=== PATIENT | female | born 1935 | race Caucasian/White ===

== ENCOUNTER 2023-07-17 14:00 | Emergency (ER) | payer OTHER ==
[~2023-07-17] VITALS: Ht 147.3 cm; Wt 49.9 kg
[2023-07-17 14:10] VITALS: BP 167/94; PULSE 80; RESP 16; TEMP 97; O2SAT 97
[2023-07-17] MEDS ORDERED: ACETAMINOPHEN 325 MG TAB PO PRN (14:55)
[2023-07-17] MEDS ORDERED: HYDROcodone/APAP 5/325 MG 1 TAB TAB PO PRN (14:55)
[2023-07-17] MEDS ORDERED: ONDANSETRON 4 MG/2 ML VIAL IVP PRN (14:55)
[2023-07-17] MEDS ORDERED: POTASSIUM CHLORIDE 10 MEQ TABER PO PRN (14:55)
[2023-07-17] MEDS ORDERED: KCL 20 MEQ IN 100 mL PREMIX 200 ML IV PRN (14:55)
[2023-07-17] MEDS ORDERED: MAG SULF 2000 MG/WATER PREMIX 50 ML IV PRN (14:55)
[2023-07-17] MEDS ORDERED: MAGNESIUM OXIDE 400 MG TAB PO PRN (14:55)
[2023-07-18] MEDS ORDERED: DOCUSATE SODIUM 100 MG GELCAP PO SCH (09:00)
== END 2023-07-17 14:59 | disposition home or self-care (01) ==
LOC: MED 14:00
DX: R53.1 Weakness (principal)
CPT/HCPCS: 99281; 99283